=== PATIENT | female | born 1995 ===

== ENCOUNTER 2021-10-26 11:41 | Emergency (ER) | payer OTHER ==
[~2021-10-26] VITALS: Ht 160 cm; Wt 49.9 kg
[2021-10-26] MEDS ORDERED: PENVK500 PO (12:35)
== END 2021-10-26 12:40 | disposition home or self-care (01) ==
LOC: ER 11:41
DX: J02.0 Streptococcal pharyngitis (principal)
CPT/HCPCS: 87430; 99283; A9270; J1100